=== PATIENT | female | born 1950 | race African-American/Black ===

== ENCOUNTER 2018-04-11 03:31 | Emergency (ER) | payer OTHER ==
[2018-04-11 04:02] VITALS: PULSE 78; TEMP 98.4; BMI 39.9
--- NOTE | 2018-04-11 04:06 | PDOC ---
History of Present Illness - General History Source: Patient Exam Limitations: No Limitations - History of Present Illness Initial Comments: 04/11/18 04:12 The patient is a 67 year old female, with a significant past medical history of hypertension, hyperlipidemia, and diabetes, who presents to the emergency department with, a headache. As per patient, the headache has been persistent all day thus, she has was not able to sleep. She reports testing her blood pressure with her at home blood pressure machine and it was elevated. She reports to be compliant with her medications. She denies any photophobia or phonophobia. She denies any recent head trauma. She denies recent fevers, chills, or dizziness. She denies recent nausea, vomit , diarrhea or constipation. She denies recent dysuria, frequency, urgency or hematuria. She denies recent chest pain or shortness of breath. Allergies: Codeine. Past surgical history: knee replacement. Social history: Nonsmoker. Denies EtOH use and recreational drug use. Primary Care Physician: Dr. Ruano <Indiana Tamayo - Last Filed: 04/11/18 04:12> - General History Source: Patient <Olvin Mcclellan - Last Filed: 04/11/18 06:23> - General Chief Complaint: Headache Stated Complaint: HEADACHE/HIGH BP Time Seen by Provider: 04/11/18 04:06 Past History <Indiana Tamayo - Last Filed: 04/11/18 04:12> - Past Medical History Anemia: No Asthma: No Cancer: No Cardiac Disorders: No CVA: No COPD: No CHF: No Dementia: No Diabetes: Yes GI Disorders: Yes (COLON POLYPS; DIVERTICULOSIS; GASTRIC ULCER; HIATAL HERNIA) Disorders: No HTN: Yes Hypercholesterolemia: Yes Liver Disease: No Seizures: No Thyroid Disease: No - Surgical History Abdominal Surgery: No Appendectomy: No Cardiac Surgery: No Cholecystectomy: No Lung Surgery: No Neurologic Surgery: No Orthopedic Surgery: Yes ((R) KNEE SX - TORN MINISCUS) - Suicide/Smoking/Psychosocial Hx Smoking Status: No Smoking History: Never smoked Have you smoked in the past 12 months: No Number of Cigarettes Smoked Daily: 0 If you are a former smoker, when did you quit?: 1987 Information on smoking cessation initiated: No Hx Alcohol Use: Yes Drug/Substance Use Hx: No Substance Use Type: None Hx Substance Use Treatment: No <EleuterioLatriceOlvin - Last Filed: 04/11/18 06:23> - Past Medical History Allergies/Adverse Reactions: Allergies Allergy/AdvReac Type Severity Reaction Status Date / Time codeine [Codeine] Allergy Hives Verified 04/11/18 04:02 Home Medications: Ambulatory Orders Omeprazole [Prilosec] 20 mg PO DAILY #1 capsule. 02/10/14 Aspirin [ASA -] 325 mg PO DAILY #0 tablet 02/21/14 Atorvastatin Ca [Lipitor] 40 mg PO DAILY #0 tablet 02/21/14 Hydrochlorothiazide [Hctz -] 25 mg PO DAILY #0 tablet 02/21/14 Lisinopril [Prinivil] 10 mg PO DAILY #0 tablet 02/21/14 Oxycodone HCl/Acetaminophen [Percocet 5-325 mg Tablet] 1 combo PO Q4H PRN #0 tablet 02/21/14 Oxycodone HCl/Acetaminophen [Percocet 5-325 mg Tablet] 2 combo PO Q4H PRN #0 tablet 02/21/14 Verapamil HCl ER [Calan Sr -] 180 mg PO DAILY #0 tablet.er 02/21/14 metFORMIN HCL [Glucophage -] 500 mg PO ACBK #0 tablet 02/21/14 Aspirin 81 mg PO 06/24/14 Hydrochlorothiazide 25 mg PO tablet 06/24/14 Metformin HCl 500 mg PO BID #14 tablet 06/24/14 Verapamil HCl [Verapamil Er] 180 mg PO 06/24/14 Diphenhydramine HCl [Benadryl -] 25 mg PO Q6H PRN #28 capsule 02/21/15 EPINEPHrine (EPI-PEN 0.3MG) [Epipen 0.3MG] 0.3 mg IM PRN PRN #1 syr 02/21/15 Methylprednisolone [Medrol Dose Feliz] 4 mg PO ASDIR #21 tablet 02/21/15 Ranitidine [Zantac -] 150 mg PO BID #10 tablet 02/21/15 Atorvastatin Calcium 10 mg PO DAILY tablet 03/17/15 Ergocalciferol (Vitamin D2) [Vitamin D] 800 unit PO tablet 03/17/15 Lisinopril 10 mg PO DAILY #7 tablet 03/17/15 Atorvastatin Ca [Lipitor] 10 mg PO HS 01/11/16 EPINEPHrine (EPI-PEN 0.3MG) [Epipen 0.3MG -] 0.3 mg IM ASDIR #2 pens 01/11/16 Hydrochlorothiazide [Hctz -] 12.5 mg PO DAILY 01/11/16 Lisinopril 10 mg PO DAILY 01/11/16 Verapamil HCl [Verapamil ER] 180 mg PO DAILY 01/11/16 predniSONE [Deltasone -] 20 mg PO BID #6 tablet 01/11/16 Review of Systems - Review of Systems Able to Perform ROS?: Yes Comments:: 04/11/18 04:12 CONSTITUTIONAL: Present: Elevated blood pressure. Absent: fever, no chills, no fatigue EYES: Absent: visual changes ENT: Absent: ear pain, no sore throat CARDIOVASCULAR: Absent: chest pain, no palpitations RESPIRATORY: Absent: cough, no SOB GI: Absent: abdominal pain, no nausea, no vomiting, no constipation, no diarrhea GENITOURINARY: Absent: dysuria, no frequency, no hematuria MUSKULOSKELETAL: Absent: back pain, no arthralgia, no myalgia SKIN: Absent: rash NEURO: Present: headache All Other Systems: Reviewed and Negative <Indiana Tamayo - Last Filed: 04/11/18 04:12> *Physical Exam - Vital Signs Last Vital Signs Temp Pulse Resp BP Pulse Ox 98.4 F 78 22 165/87 99 04/11/18 03:57 04/11/18 03:57 04/11/18 03:57 04/11/18 03:57 04/11/18 03:57 - Physical Exam Comments: 04/11/18 04:13 GENERAL: Well developed, well nourished. Awake and alert. No acute distress. HEENT: Normocephalic, atraumatic. PERRLA, EOMI. No conjunctival pallor. Sclera are non- icteric. Moist mucous membranes. Oropharynx is clear. NECK: Supple. Full ROM. No JVD. Carotid pulses 2+ and symmetric, without bruits. No thyromegaly. No lymphadenopathy. CARDIOVASCULAR: Regular rate and rhythm. No murmurs, rubs, or gallops. Distal pulses are 2+ and symmetric. PULMONARY: No evidence of respiratory distress. Lungs clear to auscultation bilaterally. No wheezing, rales or rhonchi. ABDOMINAL: Soft. Non-tender. Non-distended. No rebound or guarding. No organomegaly. Normoactive bowel sounds. MUSCULOSKELETAL Normal range of motion at all joints. No bony deformities or tenderness. No CVA tenderness. EXTREMITIES: No cyanosis. No clubbing. No edema. No calf tenderness. SKIN: Warm and dry. Normal capillary refill. No rashes. No jaundice. NEUROLOGICAL: Alert, awake, appropriate. Cranial nerves 2-12 intact. No deficits to light touch and temperature in face, upper extremities and lower extremities. No motor deficits in the in face, upper extremities and lower extremities. Normoreflexic in the upper and lower extremities. Normal speech. Toes are down- going bilaterally. Gait is normal without ataxia. PSYCHIATRIC: Cooperative. Good eye contact. Appropriate mood and affect. <Indiana Tamayo - Last Filed: 04/11/18 04:12> - Vital Signs Last Vital Signs Temp Pulse Resp BP Pulse Ox 98.4 F 78 22 165/87 99 04/11/18 03:57 04/11/18 03:57 04/11/18 03:57 04/11/18 03:57 04/11/18 03:57 <Olvin Mcclellan - Last Filed: 04/11/18 06:23> *DC/Admit/Observation/Transfer - Attestations Scribe Attestion: 04/11/18 04:13 Documentation prepared by Indiana Tamayo, acting as certified medical asst for Olvin Mcclellan DO. <Indiana Tamayo - Last Filed: 04/11/18 04:12> - Discharge Dispostion Decision to Admit order: No <Olvin Mcclellan - Last Filed: 04/11/18 06:23> Diagnosis at time of Disposition: HTN (hypertension) - Discharge Dispostion Disposition: HOME Condition at time of disposition: Stable - Referrals Referrals: Jaiden Ruano MD [Primary Care Provider] - - Patient Instructions Printed Discharge Instructions: High Blood Pressure - Post Discharge Activity
[2018-04-11] MEDS ORDERED: METOCLOPRAMIDE HCL 10 MG TABLET (FP) PO ONE ×2 (04:10→05:19)
[2018-04-11 05:42] VITALS: BP 140/72
== END 2018-04-11 06:28 | disposition home or self-care (01) ==
LOC: JER 03:31
DX: I10 Essential (primary) hypertension (principal); E78.5 Hyperlipidemia, unspecified; E11.9 Type 2 diabetes mellitus without complications; Z79.84 Long term (current) use of oral hypoglycemic drugs; Z79.82 Long term (current) use of aspirin; Z88.5 Allergy status to narcotic agent
CPT/HCPCS: 99281-25

== ENCOUNTER 2021-01-21 21:44 | Emergency (ER) | payer OTHER ==
[2021-01-21 21:54] VITALS: BP 148/77; PULSE 72; TEMP 98.6; BMI 43.2
[2021-01-21] MEDS ORDERED: FAMOTIDINE 20 MG TABLET PO ONE (22:07)
[2021-01-21] MEDS ORDERED: predniSONE 20 MG TABLET (UD) PO ONE (22:07)
[2021-01-21] MEDS ORDERED: diphenhydrAMINE HCL 25 MG CAPSULE (FP) PO ONE ×2 (22:07→22:20)
[2021-01-21] MEDS ORDERED: FAMOTIDINE 20 MG TABLET ONE (22:20)
[2021-01-21] MEDS ORDERED: predniSONE 20 MG TABLET (UD) ONE (22:20)
== END 2021-01-21 22:27 | disposition home or self-care (01) ==
LOC: JER 21:44
DX: T78.40XA Allergy, unspecified, initial encounter (principal)
CPT/HCPCS: 99284-25